=== PATIENT | male | born 1945 | race African-American/Black ===

== ENCOUNTER 2021-06-30 09:00 | Inpatient (IN) | payer OTHER ==
[2021-06-30] VITALS (23 sets, daily range): BP systolic 75–111; BP diastolic 41–71
[~2021-06-30] VITALS: Ht 177.8 cm; Wt 76.9 kg
--- NOTE | ~2021-06-30 | EMS ---
[facility] [address] [place] [address] EMS Patient Care Report Name: GIDEON PARDO Room #: 170-1 ADM IN M.R.#: [id number] Admission: 06/30/21 Attend Phys: Xavi Bustamante MD Discharge: Date of : 43 Report #: [id number] THIS REPORT FOR: //name// Report Transmitted: 06/30/2021 15:25 EMS Care Summary [place], [place]/[facility] Incident [id number] @ 06/30/2021 08:17 [id number] [place] [address] 505 Patient GIDEON PARDO Male, 75 Years 1945 Patient Address Patient History Congestive Heart Failure (CHF),Depression,Type 2 Diabetes,Enlarged prostate,Myocardial Infarction ([place]), Patient Allergies No known allergies, Patient Medications Finasteride, Norvasc, Ativan, Trazodone, Folic acid, Miralax, Atenolol, Lipitor, Acetaminophen, Heparin, Fish Oil, Pantoprazole, Tamsulosin, Cholecalciferol, Insulin, ASA, Chief Complaint Hiccups and possible dehydrated Disposition Transported No Lights/[place] Reason Chest Pain (Non-Traumatic) Transported To [facility] Narrative Called for CP. Upon arrival, pt was awake in his bed with a terrible case of the hiccups. [place] staff states this has been going on for 24 hours and this morning he started to have trouble swallowing, c/o generalized pain when you [facility] [address] [place] [address] EMS Patient Care Report Name: GIDEON PARDO Room #: 170-1 ADM IN M.R.#: [id number] Admission: 06/30/21 Attend Phys: Xavi Bustamante MD Discharge: Date of : 43 Report #: [id number] move him and ability to speak has decreased. They requested transport to [facility] for further eval & tx. Pt was moved to the EMS cot and loaded into the ambulance w/o incident. Vitals obtained. [address] elevation. Attempted IV, d-stick obtained. Vitals repeated. [facility] on high volume, [place] staff advised of going to [facility] instead. En route; no changes. RR to the ER. Arrived: pt taken to ER #8 and moved to their bed w/o incident. Pt care & report to ER staff. Initial Vitals @08:40P: 78,Pain: 0/10,SpO2: 100,[place] Suspected: false @08:34P: 77,R: 32,BP: 95/59,Pain: 0/10,GCS: 12,Glucose: 130,SpO2: 99,Revised Trauma: 10, @08:31P: 83,R: 32,BP: 92/58,Pain: 0/10,GCS: 12,SpO2: 99,Revised Trauma: 10, Assessments @08:24MENTAL:Other,Confused,Person Oriented,SKIN:Other,HEENT:LUNG SOUNDS:ABDOMEN:PELVIS//GI:EXTREMITIES:Right Arm: Weakness,Right Arm: Other,Left Arm: Other,Left Arm: Weakness,Left Leg: No Abnormalities,Right Leg: No Abnormalities,PULSE:Radial: 1+ Thready,NEURO:Slurred Speech, Impression Dehydration Procedures @08:46 IV Therapy - Saline Lock cc (20 ga) Site: Hand-Left Response: UnchangedFailed @08:40 12-Lead ECG Response: UnchangedSucceeded @08:33 12-Lead ECG Response: UnchangedFailed @08:24 ALS Assessment Response: UnchangedSucceeded @08:32 3-Lead ECG Response: UnchangedSucceeded @08:28 Stretcher Response: Unchanged Timeline 08:15,Call Received 08:15,Dispatch Notified 08:17,Dispatched 08:18,En Route 08:23,On Scene 08:24,At Patient 08:24,ALS Assessment,Response: UnchangedSucceeded, 08:28,Stretcher,Response: Unchanged 08:31,BP: 92/58 M,PULSE: 83,RR: 32 R,SPO2: 99 Ox,ETCO2: ,BG: ,PAIN: 0,GCS: 12, 08:32,3-Lead ECG,Response: UnchangedSucceeded, 08:33,12-Lead ECG,Response: UnchangedFailed, 08:34,BP: 95/59 M,PULSE: 77,RR: 32 R,SPO2: 99 Ox,ETCO2: ,B,PAIN: 0,GCS: [facility] [address] [place] [address] EMS Patient Care Report Name: GIDEON PARDO Room #: 170-1 ADM IN M.R.#: [id number] Admission: 06/30/21 Attend Phys: Xavi Bustamante MD Discharge: Date of : 43 Report #: [id number] 12, 08:40,12-Lead ECG,Response: UnchangedSucceeded, 08:40,BP: / M,PULSE: 78,RR: R,SPO2: 100 Ox,ETCO2: ,BG: ,PAIN: 0,GCS: , 08:42,Depart Scene 08:46,IV Therapy - Saline Lock cc 20 ga Site: Hand-Left,Response: UnchangedFailed, 08:57,At Destination 09:07,Call Closed Disclaimer v1.1 Copyright 2021 [employer] This EMS Care Summary contains data elements from the applicable legal record (which may be displayed differently). It is designed to provide pertinent information for the following purposes: continuity of care, clinical quality, and state data reporting. The complete legal record is available to ED staff and administrators of the receiving hospital in [employer] Patient Tracker. All data is provided "as is."
--- NOTE | ~2021-06-30 | EMS ---
[facility] [address] [place] [address] EMS Patient Care Report Name: GIDEON PARDO Room #: 249-P ADM IN M.R.#: [id number] Admission: 06/30/21 Attend Phys: Xavi Bustamante MD Discharge: Date of : 43 Report #: [id number] THIS REPORT FOR: //name// Report Transmitted: 07/01/2021 16:17 EMS Care Summary [place], [place]/[facility] Incident [id number] @ 06/30/2021 08:17 Incident Location [id number] [place] [address] Patient GIDEON PARDO Male, 75 Years 1945 Patient Address Patient History Congestive Heart Failure (CHF),Depression,Type 2 Diabetes,Enlarged prostate,Myocardial Infarction ([place]), Patient Allergies No known allergies, Patient Medications Finasteride, Norvasc, Ativan, Trazodone, Folic acid, Miralax, Atenolol, Lipitor, Acetaminophen, Heparin, Fish Oil, Pantoprazole, Tamsulosin, Cholecalciferol, Insulin, ASA, Chief Complaint Hiccups and possible dehydrated Disposition Transported No Lights/[place] Dispatch Reason Chest Pain (Non-Traumatic) Transported To [facility] Narrative Called for CP. Upon arrival, pt was awake in his bed with a terrible case of the hiccups. [place] staff states this has been going on for 24 hours and this morning he started to have trouble swallowing, c/o generalized pain when you [facility] [address] [place] [address] EMS Patient Care Report Name: GIDEON PARDO Room #: 249-P ADM IN M.R.#: [id number] Admission: 06/30/21 Attend Phys: Xavi Bustamante MD Discharge: Date of : 43 Report #: [id number] move him and ability to speak has decreased. They requested transport to [facility] for further eval & tx. Pt was moved to the EMS cot and loaded into the ambulance w/o incident. Vitals obtained. [address] elevation. Attempted IV, d-stick obtained. Vitals repeated. [facility] on high volume, [place] staff advised of going to [facility] instead. En route; no changes. RR to the ER. Arrived: pt taken to ER #8 and moved to their bed w/o incident. Pt care & report to ER staff. Initial Vitals @08:40P: 78,Pain: 0/10,SpO2: 100,[place] Suspected: false @08:34P: 77,R: 32,BP: 95/59,Pain: 0/10,GCS: 12,Glucose: 130,SpO2: 99,Revised Trauma: 10, @08:31P: 83,R: 32,BP: 92/58,Pain: 0/10,GCS: 12,SpO2: 99,Revised Trauma: 10, Assessments @08:24MENTAL:Person Oriented,Confused,Other,SKIN:Other,HEENT:LUNG SOUNDS:ABDOMEN:PELVIS//GI:EXTREMITIES:Left Arm: Weakness,Left Arm: Other,Right Arm: Other,Right Arm: Weakness,Left Leg: No Abnormalities,Right Leg: No Abnormalities,PULSE:Radial: 1+ Thready,NEURO:Slurred Speech, Impression Dehydration Procedures @08:46 IV Therapy - Saline Lock cc (20 ga) Site: Hand-Left Response: UnchangedFailed @08:40 12-Lead ECG Response: UnchangedSucceeded @08:33 12-Lead ECG Response: UnchangedFailed @08:24 ALS Assessment Response: UnchangedSucceeded @08:32 3-Lead ECG Response: UnchangedSucceeded @08:28 Stretcher Response: Unchanged Timeline 08:15,Call Received 08:15,Dispatch Notified 08:17,Dispatched 08:18,En Route 08:23,On Scene 08:24,At Patient 08:24,ALS Assessment,Response: UnchangedSucceeded, 08:28,Stretcher,Response: Unchanged 08:31,BP: 92/58 M,PULSE: 83,RR: 32 R,SPO2: 99 Ox,ETCO2: ,BG: ,PAIN: 0,GCS: 12, 08:32,3-Lead ECG,Response: UnchangedSucceeded, 08:33,12-Lead ECG,Response: UnchangedFailed, 08:34,BP: 95/59 M,PULSE: 77,RR: 32 R,SPO2: 99 Ox,ETCO2: ,B,PAIN: 0,GCS: [facility] [address] [place] [address] EMS Patient Care Report Name: GIDEON PARDO Room #: 249-P ADM IN M.R.#: [id number] Admission: 06/30/21 Attend Phys: Xavi Bustamante MD Discharge: Date of : 43 Report #: [id number] 12, 08:40,12-Lead ECG,Response: UnchangedSucceeded, 08:40,BP: / M,PULSE: 78,RR: R,SPO2: 100 Ox,ETCO2: ,BG: ,PAIN: 0,GCS: , 08:42,Depart Scene 08:46,IV Therapy - Saline Lock cc 20 ga Site: Hand-Left,Response: UnchangedFailed, 08:57,At Destination 09:07,Call Closed Disclaimer v1.1 Copyright 2021 [employer] This EMS Care Summary contains data elements from the applicable legal record (which may be displayed differently). It is designed to provide pertinent information for the following purposes: continuity of care, clinical quality, and state data reporting. The complete legal record is available to ED staff and administrators of the receiving hospital in [employer] Patient Tracker. All data is provided "as is."
[2021-06-30 09:48] LABS: HEMATOCRIT 30.2 % (42.0-52.0); MCHC 32.6 g/dL (28.0-37.0)
[2021-06-30 09:49] LABS: HEMOGLOBIN 9.9 gm/dL (14.0-18.0); MCV 88.8 fL (80.0-100.0); PLATELET COUNT 509 thou/uL (150-400); RDW 16.2 % (10.5-14.5); WBC 10.5 thou/uL (4.0-11.0)
[2021-06-30 09:55] LABS: CALCIUM 8.7 mg/dL (8.5-10.1); CREATININE 3.2 mg/dL (0.7-1.3); POTASSIUM 4.6 mmol/L (3.5-5.1)
[2021-06-30 09:56] LABS: URINE BILIRUBIN NEGATIVE (Negative); URINE BLOOD 1+ (Negative); URINE COLOR YELLOW; URINE GLUCOSE-RANDOM* NEGATIVE (Negative); URINE KETONES NEGATIVE (Negative); URINE NITRITE-REFLEX NEGATIVE (Negative); URINE PROTEIN (DIPSTICK) 1+ (Negative); URINE SPECIFIC GRAVITY 1.015 (1.005-1.035); URINE UROBILINOGEN 0.2 E.U./dl (0.2-1.0)
[2021-06-30 09:57] LABS: URINE CLARITY HAZY; URINE LEUKOCYTES-REFLEX 3+ (Negative)
[2021-06-30 10:02] LABS: ALBUMIN 1.8 g/dL (3.4-5.0); TOTAL PROTEIN 8.2 g/dL (6.4-8.2)
[2021-06-30 10:11] LABS: CASTS None Seen /LPF (None Seen); SQUAMOUS >10 Many /LPF (0-3)
[2021-06-30 10:12] LABS: BACTERIA-REFLEX >30 Many /HPF (None Seen); CRYSTALS None Seen /LPF (None Seen); URINE RBC 1-2 Rare /HPF (NONE SEEN)
--- NOTE | 2021-06-30 11:15 | NUR ---
PT TO IMAGING IN BED FOR ORDERS. PT IS RESTING IN BED WITH EYES CLOSED.
--- NOTE | 2021-06-30 12:35 | EKG ---
[place] [address] [place] [address] ELECTROCARDIOGRAM REPORT Name: PAMVALERIASUSANNEPHONGTori Room #: REG 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: : 1945 Requested By: Rosangela Ferris Order Number: [id number] MD: Shawn Lance Measurements Intervals [place] Rate: 79 P: 69 IA: 147 QRS: 82 QRSD: 136 T: QT: 460 QTc: 528 Interpretive Statements Sinus rhythm Consider right atrial enlargement Right bundle branch block No previous ECG available for comparison Electronically Signed On 06-30-2021 12:35:16 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
[2021-06-30 13:30] LABS: ABSOLUTE NEUTROPHILS 9.3 thou/uL (1.4-8.2)
--- NOTE | 2021-06-30 13:38 | NUR ---
A RIGHT IJ CENTRAL LINE WAS PLACED IN THE RIGHT JUGULAR PER HOSPITAL POLICY. THE 25CM LINE WAS ADVANCED TO 7CM EXTERNAL. A STAT CHEST XRAY WAS ORDERED FOR CONFIRMATION
--- NOTE | 2021-06-30 15:36 | NUR ---
75-year-old male patient presents to the ED of [place]. The patient presents with altered mental status and Toxic Metabolic Encephalopathy, Lactic acidosis and MARGE. The patient will be evaluated medically and upon these evaluations and therapy recommendations the plan will be to return to [facility]. CM will need to reach out to [facility] to obtain contact information for family as none listed in the medical record.
--- NOTE | 2021-06-30 16:54 | NUR ---
PT ADMITTED RELATED TO MARGE, DEHYDRATION, HYPOTENSION, LACTIC ACIDOSIS. CM REVIEWED CHART AND SPOKE WITH CARE TEAM. CM REACHED OUT TO CAT LIAISON AT [facility] THERE AREN'T ANY CONTACTS LISTED FOR PT IN OUR RECORD. SHE INDICATED THAT THEY DON'T HAVE ANY ON FILE FOR HIM EITHER. SHE INDICATED THAT THERE WAS A CHILD LISTED ON PT'S INITIAL REFERRAL PAPERWORK AND THAT SHE WAS GOING TO REACH OUT TO THE FACILITY'S ADMISSIONS PERSON TO SEE TO WHY THAT PERSON WASN'T ADDED TO THEIR ADMISSION CONTACTS. CM AWAITING RESPONSE. CM FAXED CLINICAL UPDATE TO [facility]. CM FOLLOWING REGARDING DC PLANNING. PT TO HAVE NEURO WORK UP.
--- NOTE | 2021-06-30 16:58 | NUR ---
REPORT GIVEN TO BRIANNA LUGO ND PT TRANSPORTED TO ROOM 249 IN ICU.
--- NOTE | 2021-06-30 19:15 | NUR ---
PT ARRIVED APPROXIMATELY AROUND 1700 WITH ONE RN ESCORT, AT THE TIME OF ARRIVAL PT WAS ON RA, TACHYPNEIC, WAS ON LEVO AT 0.6, WAS INCREASED; PT'S MAP WAS BELOW 60 AT THE TIME OF MEASUREMENT IN THE ICU. MD WAS NOTIFIED IMMEDIATELY, ORDER FOR 1 NS BOLUS AND VASOPRESSIN WAS ORDERED WELL, MAP IS NOW AT >60 BED BATH WAS PROVIDED WHEN PT ARRIVED, IT WAS NOTED THAT PT HAD MULTIPLE HEALING SCARS ALL ACROSS THE BODY. THIS WAS COMMUNICATED TO THE ONCOMING RN, R KNEE HEALING SCAR WAS OPEN SO PICTURES WERE TAKEN. AT THE TIME OF ASSESSMENT, PT WAS NONE RESONSIVE, AND THERE WERE NO CONTACTS TO RETREIVE INFORMATION FROM SO RN PROVIDED BEST POSSIBLE FOR INITIAL ASSESSMENT AND REFERRED TO CHARTING FROM [facility] FOR ASSESSMENT.
--- NOTE | 2021-06-30 22:13 | NUR ---
DR BUNCH FROM ID AT BEDSIDE, PHYSICIAN NOTIFIED OF PRESENCE OF GNR IN BLOOD CULTURES
[2021-07-01] VITALS (44 sets, daily range): BP systolic 85–118; BP diastolic 50–74
[2021-07-01 04:47] LABS: MCH 29.2 pg (26.0-34.0); MCHC 32.6 g/dL (28.0-37.0); MCV 89.7 fL (80.0-100.0); RBC 2.67 mil/uL (4.50-6.00); WBC 14.4 thou/uL (4.0-11.0)
[2021-07-01 04:51] LABS: HEMOGLOBIN 7.8 gm/dL (14.0-18.0)
[2021-07-01 05:03] LABS: CALCIUM 7.7 mg/dL (8.5-10.1)
[2021-07-01 05:06] LABS: CREATININE 1.2 mg/dL (0.7-1.3); POTASSIUM 3.1 mmol/L (3.5-5.1)
--- NOTE | 2021-07-01 10:21 | NUR ---
WOUND CARE CONSULT; THE RN IDENTIFIED WOUNDS TO THE BILATERAL LATERAL KNEES WHICH ARE STAGE 2. THE LEFT ELBOW HAS A STAGE 2 WOUND. THE PATIENT IS CONFUSED, AND CRYING OUT. DEMETIA VS INFECTION? I DON'T KNOW IF THIS IS THE PATIENTS BASELINE. RECOMMENDATIONS: -Q2H TURNING. -BILATERAL LATERAL KNEE, APPLY XEROFORM/BORDER FOAM, CHANGE M/W/F PRN/. -LEFT ELBOW, APPLY XEROFORM/BORDER FOAM, CHANGE M/W/F PRN.
--- NOTE | 2021-07-01 17:00 | NUR ---
PT'S SON CALLED TODAY FROM [place]. AFTER SPEAKING WITH SON, PT GAVE CONSENT TO GIVE INFORMATION TO HIS SON. [address] PER ICU BED ON VALUE ENGINEER ACCOMPANIED BY REZA, AUTO BODY BUILDER APPRENTICE. 1700 RETURNED TO ICU. WELL TOLERATED.
--- NOTE | 2021-07-01 18:30 | NUR ---
IRRIGATED FORTE WITH 20CC NS CLEAN TECHNIQUE, OBTAINED SMALL DK OLD BLOOD CLOTS. PATENT WITH KOOLAID RED DRAINAGE. WELL TOLERATED
--- NOTE | 2021-07-01 21:49 | NUR ---
DR JENKINS CALLED TO NURSING UNIT TO INQUIRE IF UROLOGY WAS AWARE OF C/T FINDINGS SUGGESTIVE OF A BLADDER PERFORATION. PER DR JARA'S NOTE, HE IS AWARE OF C/T FINDINGS AND WOULD LIKE TO CONTINUE WITH CURRENT TREATMENT.
[2021-07-02] VITALS (34 sets, daily range): BP systolic 76–132; BP diastolic 35–68
[2021-07-02 05:21] LABS: MCH 28.6 pg (26.0-34.0); MCHC 32.2 g/dL (28.0-37.0); MCV 88.9 fL (80.0-100.0); RBC 2.81 mil/uL (4.50-6.00); RDW 16.6 % (10.5-14.5); WBC 11.3 thou/uL (4.0-11.0)
[2021-07-02 05:48] LABS: CALCIUM 7.7 mg/dL (8.5-10.1); CREATININE 0.8 mg/dL (0.7-1.3)
[2021-07-02 05:50] LABS: POTASSIUM 2.7 mmol/L (3.5-5.1)
--- NOTE | 2021-07-02 06:11 | NUR ---
PT'S k-2.7, Luba MURILLO IS AWARE. NO REC'D.
--- NOTE | 2021-07-02 10:13 | NUR ---
Favian Kraft, son inquired regarding pt status. since pt yesterday gave permission to give his son information, RN gave him the pt code and updated him on pt status details. he asked to be able to "speak with my father by phone before he dies". OT and PT worked together with pt to sit him up on the bedside. RN took phone to pt's room. RN called son on two different phones, unsuccessfully. the call would not go through. RN called the research manufacturing operator to assist in call. call for research manufacturing operator unable to go through. She stated that it was a "non-working phone number". Notified Angelika Hunter, ICU Charge Nurse.
--- NOTE | 2021-07-02 11:30 | NUR ---
Favian, son returned call. attempted to transfer call into pt room, unsuccessful. attempted to call Favian, call unable to go through to him. notified pt his son called.
--- NOTE | 2021-07-02 15:38 | HC ---
[facility] [place] [address] [address] CONSULTATION Name: GIDEON PARDO Room #: 249-P ADM IN M.R.#: [id number] Admission: 06/30/21 Attend Phys: Xavi Bustamante MD Discharge: Date of : 43 Report #: [id number] THIS REPORT FOR: cc: Seymour Nayak MD, Shyam MD Geha,Guillaume Morel MD ~ DATE OF SERVICE: 06/30/2021 INFECTIOUS DISEASE CONSULTATION REASON FOR CONSULTATION: I was asked to evaluate concerning septic shock. HISTORY OF PRESENT ILLNESS: The patient was a 75-year-old, transferred from a local fdc with altered mental status. Over the last 24 hours, he has had decreased mental status, unable to speak and just moans. Typically, he is able to converse normally and he does bear weight and pivot as a baseline. He does have a history of prostate cancer. No reported trauma. He has had no cough or sputum production. He has had hiccups. No reported diarrhea. In the Emergency Room, he was hypotensive. He received IV fluids and is now on vasopressors. He has a right IJ catheter that was placed. An indwelling Lee catheter was also placed. He has had no dysrhythmias. He remains encephalopathic. He has been seen by Urology. REVIEW OF SYSTEMS: The patient is unable to give any details of review of systems. ALLERGIES: None known. MEDICATIONS: As noted on his MAR, having received vancomycin and ceftriaxone. He is also on vasopressors. PAST MEDICAL HISTORY: Unavailable other than his report of prostate cancer. CT scan does show prostatic hypertrophy. FAMILY HISTORY: Not available. SOCIAL HISTORY: Not available. PHYSICAL EXAMINATION: GENERAL: He was afebrile. Blood pressure marginal on vasopressors. SKIN: Without rash. He does have a skin tear, right lateral calf. No palpable adenopathy. HEENT: Eyes without scleral icterus. Mouth without mucositis. NECK: Supple. LUNGS: Few crackles in the right base posteriorly. HEART: Regular, without appreciable murmur, gallop, or rub. [facility] [address] [place] [address] CONSULTATION Name: GIDEON PARDO Room #: 249-P ADM IN M.R.#: [id number] Admission: 06/30/21 Attend Phys: Xavi Bustamante MD Discharge: Date of : 43 Report #: [id number] ABDOMEN: Soft. He did grimace some with palpation. No appreciable mass or hepatosplenomegaly. GENITOURINARY: External genitalia without mass or lesion. He has an indwelling Lee catheter. RECTAL: Not performed. EXTREMITIES: Without clubbing, cyanosis, or edema. He was able to move all extremities. LABORATORY DATA: Reviewed. MICROBIOLOGY: Reviewed. IMAGING: CT scan of the abdomen and pelvis reviewed. Chest x-ray reviewed. CT scan of the head reviewed. Pelvis x-ray reviewed. IMPRESSION: A 75-year-old with Gram-negative bacteremia and septic shock. I suspect pyelonephritis with urinary outlet obstruction from his prostatic hypertrophy. He does have right pyelocaliectasis and some hydronephrosis. He also has a fluid collection evident in the right lower abdomen. He has acute kidney injury, anemia, hyponatremia, and cholelithiasis. RECOMMENDATION: We will continue with broad antibiotic coverage, pending culture results. The patient will need further imaging of his abdomen to further assess the right lower abdominal fluid collection. Urology will follow up the right hydronephrosis. I suspect this is most likely related to his outlet obstruction and should improve with Lee catheter placement. His acute renal failure will be followed and his antibiotics will be adjusted accordingly. I have discussed the case with nursing services in intensive care unit and will continue full support. <ELECTRONICALLY SIGNED> By: Guillaume Malik MD 07/02/21 1538 49 09 Guillaume Malik MD /nt
[2021-07-03] VITALS (39 sets, daily range): BP systolic 94–129; BP diastolic 45–79
[2021-07-03 06:57] LABS: HEMATOCRIT 27.7 % (42.0-52.0); HEMOGLOBIN 8.7 gm/dL (14.0-18.0); MCH 27.7 pg (26.0-34.0); MCHC 31.4 g/dL (28.0-37.0); MCV 88.2 fL (80.0-100.0); RBC 3.14 mil/uL (4.50-6.00); RDW 16.6 % (10.5-14.5); WBC 9.8 thou/uL (4.0-11.0)
[2021-07-03 07:16] LABS: CALCIUM 7.5 mg/dL (8.5-10.1); CREATININE 0.8 mg/dL (0.7-1.3)
[2021-07-03 07:17] LABS: POTASSIUM 2.9 mmol/L (3.5-5.1)
--- NOTE | 2021-07-03 08:32 | NUR ---
WOUND CARE F/U; THE BILATERAL/LATERAL KNEE WOUNDS ARE CLINICALLY BETTER TODAY. NO S/S OF INFECTION. NO CHANGES. RN IS PRESENT DURING ASSESSMENT.
--- NOTE | 2021-07-03 15:56 | NUR ---
Discussed during los with the attend physician, possible able to transfer out of icu. Patient from [facility]. updates provided. No weekend dc, will cont. following as needed.
--- NOTE | 2021-07-03 15:57 | NUR ---
RN DID NOT SPEAK TO PT FAMILY THROUGHOUT SHIFT. PT PROGRESING TOWARD PLAN OF CARE EVIDENCE BY IMPORVEMENT OF MENTAL STATUS AND PT NO LONGER REQUIREING LEVOPHED
[2021-07-04] VITALS (26 sets, daily range): BP systolic 92–114; BP diastolic 49–65
[2021-07-04 03:11] LABS: HEMATOCRIT 26.4 % (42.0-52.0); HEMOGLOBIN 8.6 gm/dL (14.0-18.0); MCH 28.8 pg (26.0-34.0); MCHC 32.7 g/dL (28.0-37.0); MCV 88.2 fL (80.0-100.0); RBC 2.99 mil/uL (4.50-6.00); RDW 16.3 % (10.5-14.5); WBC 16.5 thou/uL (4.0-11.0)
[2021-07-04 03:19] LABS: CALCIUM 7.5 mg/dL (8.5-10.1); CREATININE 1.2 mg/dL (0.7-1.3)
[2021-07-04 03:34] LABS: POTASSIUM 3.9 mmol/L (3.5-5.1)
--- NOTE | 2021-07-04 04:13 | NUR ---
urine output this shift decreased to only 50 ml. flushed urinary catheter no urine present in tubing after flush. removed cather due to pt having pain and no urine output. replaced urinary catether easily, went in place. 575 of pink tinged urine with heavey amounts of pus. continues on iv maintance fluids.
[2021-07-05] VITALS (47 sets, daily range): BP systolic 101–127; BP diastolic 54–72
[2021-07-05 07:03] LABS: HEMATOCRIT 23.9 % (42.0-52.0); HEMOGLOBIN 7.9 gm/dL (14.0-18.0); MCH 29.1 pg (26.0-34.0); MCHC 32.9 g/dL (28.0-37.0); MCV 88.3 fL (80.0-100.0); RBC 2.71 mil/uL (4.50-6.00); RDW 16.8 % (10.5-14.5); WBC 13.4 thou/uL (4.0-11.0)
--- NOTE | 2021-07-05 17:46 | NUR ---
THIS RN AND SANDIP CHAPIN TOOK PT TO CT AT 1645. AFTER [address] CT, THIS RN CALLED DR. CLAY AND OBTAINED AN ORDER FOR A CHEST CT. PT TOLERATED CT AND TRANSPORT WELL. PT HAS BEEN CALM AND APPETITE HAS SLIGHTLY INCREASED TODAY. PT REMAINS OFF PRESSORS AND HAS NOT C/O PAIN THIS SHIFT. PT'S FRIEND ERINN WAS AT BEDSIDE FOR ABOUT 30 MINUTES TODAY. VS REMAIN STABLE. RN TO MONITOR AND FOLLOW POC.
[2021-07-06] VITALS (45 sets, daily range): BP systolic 70–120; BP diastolic 47–69
--- NOTE | 2021-07-06 07:00 | NUR ---
NO EVENTS OVERNOC. PT DID NOT REQUIRE MEDS TO CONTROL HICCUPS. C/O PAIN TO BACK/ABD ONETIME WITH SUCCESS WITH MEDS. PT SLEPT MOST OF THE NOC. VSS. M/S ORDERS IN [employer]. [id number] WITH BARRIER CREAM APPLIED TO BOTTOM. ROOM AIR WITH 02 SATS 98 AND ABOVE. ALERT TO SELF, TENDS TO MUMBLE OR SPEAK SOFTLY, BECOMES IRRITATED AT TIMES AND WILL YELL BUT EASILY REDIRECTABLE, OVERALL VERY PLEASANT. WILL CONTINUE TO MONITOR.
--- NOTE | 2021-07-06 08:36 | NUR ---
rn called dr harish lucero service per request of dr. michaud. dr michaud ordered to cancel tranfer m/s order. he wants dr moreira who is already consulted to look at pt ct of abd that was done yesterday. dr michaud stated "pt is getting worse". rn will continue to monitor and follow plan of care.
--- NOTE | 2021-07-06 13:24 | NUR ---
WOUND CARE F/U: THE BILATERAL/LATERAL KNEES WERE ASSESSED AND THE QUALITY OF THE WOUNDBED IS MUCH BETTER. NO S/S OF INFECTION. WE ARE USING XEROFORM/BORDER FOAM. RECOMMNEDATIONS: NO CHANGES AT THIS TIME.
[2021-07-06 13:51] LABS: HEMOGLOBIN 7.7 gm/dL (14.0-18.0); MCH 28.8 pg (26.0-34.0); MCHC 33.2 g/dL (28.0-37.0); MCV 86.8 fL (80.0-100.0); RBC 2.65 mil/uL (4.50-6.00); RDW 16.3 % (10.5-14.5); WBC 10.6 thou/uL (4.0-11.0)
== END 2021-07-07 | DRG 853 ==
LOC: ER 09:00 → EROBS 14:24 → ICU 14:24
PROVIDERS: Emergency Medicine; ADMIT Hospitalist; ATTEND Hospitalist
PROC: 02HV33Z Insertion of Infusion Device into Superior Vena Cava, Percutaneous Approach (ICD-10-PCS; principal; 2021-06-30)
PROC: 0W9G40Z Drainage of Peritoneal Cavity with Drainage Device, Percutaneous Endoscopic Approach (ICD-10-PCS; 2021-07-07)
DX: A41.51 Sepsis due to Escherichia coli [E. coli] (principal); R65.21 Severe sepsis with septic shock; G92.8 Other toxic encephalopathy; S22.009A Unspecified fracture of unspecified thoracic vertebra, initial encounter for closed fracture; N17.9 Acute kidney failure, unspecified; N13.6 Pyonephrosis; E87.1 Hypo-osmolality and hyponatremia; E86.0 Dehydration; N13.9 Obstructive and reflux uropathy, unspecified; D64.9 Anemia, unspecified; K80.20 Calculus of gallbladder without cholecystitis without obstruction; E87.6 Hypokalemia; N32.89 Other specified disorders of bladder; R33.8 Other retention of urine; N40.1 Benign prostatic hyperplasia with lower urinary tract symptoms; Z20.822 Contact with and (suspected) exposure to COVID-19; Z85.46 Personal history of malignant neoplasm of prostate
CPT/HCPCS: 10078; 10196; 50455